=== PATIENT | female | born 1965 | race Caucasian/White ===

== ENCOUNTER → 2017-01-19 | Outpatient (CLI) | payer BC | LOC: MAMO 11:20 | DX: Z12.31 Encounter for screening mammogram for malignant neoplasm of breast (principal); Z78.0 Asymptomatic menopausal state | CPT/HCPCS: G0202 ==

== ENCOUNTER → 2021-05-08 | Outpatient (CLI) | payer BC ==
[~2021-05-08] MED LIST: AMLODIPINE BESYL5 MG PO; BENADRYL25 MG PO; PRAVACHOL40 MG PO; PREDNISONE20 MG PO; RECLAST PO; SYNTHROID50 MCG PO; TRAMADOL HCL50 MG PO; ZOLPIDEM TART12.5 MG PO
== END ==
LOC: MAMO 10:53
DX: Z12.31 Encounter for screening mammogram for malignant neoplasm of breast (principal)
CPT/HCPCS: 77063; 77067

== ENCOUNTER → 2021-06-16 | Outpatient (CLI) | payer BC | LOC: KOH-I 05-28 16:00 → MRI 06-10 11:15 | DX: R42 Dizziness and giddiness (principal); R51.9 Headache, unspecified | CPT/HCPCS: 70551 ==

== ENCOUNTER → 2021-10-14 | Outpatient (CLI) | payer BC ==
[~2021-10-14] VITALS: Ht 167.6 cm; Wt 65.8 kg
== END ==
LOC: OPSV 10-01 13:00
DX: M81.0 Age-related osteoporosis without current pathological fracture (principal)
CPT/HCPCS: 96365; J3489

== ENCOUNTER → 2022-06-15 | Outpatient (CLI) | payer BC | LOC: MAMO 13:30 | DX: Z12.31 Encounter for screening mammogram for malignant neoplasm of breast (principal) | CPT/HCPCS: 77063; 77067 ==